=== PATIENT | female | born 1955 | race Two or more races ===

== ENCOUNTER 2018-03-26 15:04 | Inpatient (IN) | payer MEDICAID, OTHER ==
[~2018-03-26] VITALS: Ht 154.9 cm; Wt 65.5 kg
[2018-03-26] MEDS ORDERED: GLUC1KIT SQ (15:34)
[2018-03-26] MEDS ORDERED: POLY15DR57 EACHEYE (15:34)
[2018-03-26] MEDS ORDERED: METF-440 PO (15:34)
[2018-03-26] MEDS ORDERED: HYDR-548 PO (15:34)
[2018-03-26] MEDS ORDERED: PANT40TA4 PO (15:34)
[2018-03-26] MEDS ORDERED: SERT50TA PO (15:34)
[2018-03-26] MEDS ORDERED: MAGN61TA3 PO (15:34)
[2018-03-26] MEDS ORDERED: LISI-607 PO (15:34)
[2018-03-26] MEDS ORDERED: GLIP2.5T PO (15:34)
[2018-03-26] MEDS ORDERED: HYDR-551 PO (15:34)
[2018-03-26] MEDS ORDERED: DIPH25CA83 PO (15:34)
[2018-03-26] MEDS ORDERED: ONDA4TAB5 PO (15:34)
[2018-03-26] MEDS ORDERED: TYLENOL PR (15:34)
[2018-03-26] MEDS ORDERED: ACET-2154 PO (15:34)
[2018-03-26] MEDS ORDERED: IV NORMAL SALINE 1000 ML BAG IV ONE (15:45)
[2018-03-26] MEDS ORDERED: ONDANSETRON 4 MG/2 ML VIAL IV ONE (15:45)
[2018-03-26] MEDS ORDERED: ONDANSETRON 4 MG/2 ML VIAL ONE (15:54)
[2018-03-26 16:05] LABS: BASOPHILS # (AUTO) 0.1 K/uL (0.0-8.0); EOSINOPHILS # (AUTO) 0.2 K/uL (0.0-0.7); EOSINOPHILS % (AUTO) 3.3 % (0.0-7.0); HEMATOCRIT 36.6 % (31.2-41.9); HEMOGLOBIN 12.3 g/dL (10.9-14.3); LYMPHOCYTES # (AUTO) 2.1 K/uL (20.0-40.0); LYMPHOCYTES % (AUTO) 32.4 % (20.5-51.5); MEAN CORPUSCULAR HEMOGLOBIN 29.2 uug (24.7-32.8); MEAN CORPUSCULAR HGB CONC 34 g/dL (32.3-35.6); MEAN CORPUSCULAR VOLUME 86.6 fL (75.5-95.3); MONOCYTES # (AUTO) 0.5 K/uL (2.0-10.0); MONOCYTES % (AUTO) 7.9 % (0.0-11.0); NEUTROPHILS # (AUTO) 3.6 K/uL (1.8-8.9); NEUTROPHILS % (AUTO) 55.4 % (38.5-71.5); PLATELET COUNT (AUTO) 309 K/uL (179-408); RED BLOOD CELL COUNT(AUTO) 4.23 MIL/uL (3.63-4.92); WHITE BLOOD COUNT (AUTO) 6.6 K/uL (3.8-11.8)
[2018-03-26 16:17] LABS: CARBON DIOXIDE 29 mmol/L (21-32); CHLORIDE 103 mmol/L (98-107); CREATININE 0.9 mg/dL (0.6-1.3); GLUCOSE 133 mg/dL (74-106); POTASSIUM 4.4 mmol/L (3.5-5.1); UREA NITROGEN, BLOOD 20 mg/dL (7-18)
[2018-03-26 16:23] LABS: ALANINE AMINOTRANSFERASE 17 U/L (14-59); ALKALINE PHOSPHATASE 90 U/L (50-136); ASPARTATE AMINOTRANSFERASE 9 U/L (15-37); BILIRUBIN,DIRECT < 0.1 mg/dL (0.0-0.2); BILIRUBIN,TOTAL 0.1 mg/dL (0.2-1.0); LIPASE 95 U/L (73-393); TOTAL PROTEIN, SERUM 7.1 g/dL (6.4-8.2)
[2018-03-26 17:20] LABS: *BILIRUBIN,URIN NEGATIVE (NEGATIVE); *COLOR,URINE YELLOW (YELLOW); *KETONES,URINE NEGATIVE (NEGATIVE); *PROTEIN,URINE NEGATIVE (NEGATIVE); *UROBILINOGEN,URINE 0.2 E.U./dl (NORMAL); NITRITE, URINE NEGATIVE (NEGATIVE)
[2018-03-26] MEDS ORDERED: PIPERACILLIN SODIUM/TAZOBACTAM 3.375 G in IV DEXTROSE 5% 50 ML IV ONE (18:45)
[2018-03-26] MEDS ORDERED: PIPERACILLIN/TAZOBACTAM/D5W 50 ML IV ONE (18:54)
[2018-03-26 19:32] LABS: *CLARITY,URINE SLIGHTLY CLOUDY (CLEAR)
[2018-03-26 19:34] LABS: *BLOOD, URINE TRACE (NEGATIVE); LEUKOCYTE ESTERASE ,URINE 1+ (NEGATIVE); UGLUCOSE NEGATIVE (NEGATIVE)
[2018-03-26 19:37] LABS: BACTERIA,URINE MANY /HPF (NONE SEEN); SQUAMOUS EPITHELIAL CELL,UR MODERATE /HPF (NONE SEEN)
--- NOTE | 2018-03-26 19:41 | NUR ---
Pt awake, alert, oriented x3. No sob noted. No s/sx of distress noted. Resp even and unlabored. Pt mostly speaks Thai. Able to move well in bed. R BLE amputation noted. Skin intact. Output 800ml clear, yellow urine noted. Will cont to monitor. Call light within reach.
--- NOTE | 2018-03-26 19:47 | NUR ---
Report given to TOMASA Brito
--- NOTE | 2018-03-26 19:50 | NUR ---
20g LAC IV flushing well. Dressing C/D/I
--- NOTE | 2018-03-26 20:02 | NUR ---
Pt. admitted to same day surgery center, under care of Dr Garcia. Belongs List completed
[2018-03-26 20:10] VITALS: BP 116/56
[2018-03-26] MEDS ORDERED: POLYVINYL ALCOHOL OPHT DROPS 15 ML BOTTLE EACHEYE PRN (20:30)
[2018-03-26] MEDS ORDERED: Z GUARD REMEDY PASTE 57 GM TUBE TOP PRN (20:45)
[2018-03-26] MEDS ORDERED: HYDROCODONE/APAP 10-325 MG TABLET PO PRN (20:45)
[2018-03-26] MEDS ORDERED: MORPHINE SULFATE 4 MG/1 ML DISP.SYRIN IV PRN (20:45)
[2018-03-26] MEDS ORDERED: ONDANSETRON 4 MG/2 ML VIAL IV PRN (20:45)
[2018-03-26] MEDS ORDERED: MAGNESIUM HYDROXIDE 30 ML LIQUID UDC PO PRN (20:45)
[2018-03-26] MEDS ORDERED: ACETAMINOPHEN 325 MG TABLET PO PRN (20:45)
--- NOTE | 2018-03-26 21:00 | NUR ---
RECEIVED PT FROM ER [facility]IA [facility]. UNDER THE CARE OF DR. KARINA DNP. DX: DIVERTICULITIS. PT SHOWS NO SIGNS OF DISTRESS. PT VITAL SIGNS WITHIN NORMAL LIMIT. BELONGING LIST DONE.ADMISSION PROCESS AND CARE PLAN INITIATED. INTERMEDIATE ASSESSMENT DONE. SAFETY AND COMFORT PROVIDED. WILL CONTINUE TO MONITOR.
[2018-03-26] MEDS: IV NS 1000 ML 1,000 ML IV PRN (21:58)
[2018-03-26] MEDS ORDERED: ENOXAPARIN SODIUM 30 MG/0.3 ML DISP.SYRIN SUBCUT ONE (22:00)
[2018-03-26] MEDS ORDERED: METRONIDAZOLE 500 MG/NS 100ML 100 ML IV ONE (23:20)
[2018-03-26] MEDS ORDERED: PIPERACILLIN SODIUM/TAZO 3.375 GM VIAL ONE (23:20)
[2018-03-26] MEDS: METRONIDAZOLE 500 MG/NS 100ML 500 MG in PREMIXED 1 EACH IV SCH (23:44)
[2018-03-27] MEDS: PIPERACILLIN/TAZOBACTAM/D5W 3.375 G in PREMIXED 1 EACH IV SCH ×4 (00:37→21:52)
[2018-03-27] MEDS ORDERED: PIPERACILLIN SODIUM/TAZO 3.375 GM VIAL ONE (01:13)
[2018-03-27] MEDS ORDERED: METRONIDAZOLE 500 MG/NS 100ML 100 ML IV ONE (01:13)
[2018-03-27 04:00] VITALS: BP 102/62
[2018-03-27] MEDS: METRONIDAZOLE 500 MG/NS 100ML 500 MG in PREMIXED 1 EACH IV SCH ×2 (05:15→14:10)
[2018-03-27 06:30] LABS: BASOPHILS % (AUTO) 0.5 % (0.0-2.0); EOSINOPHILS # (AUTO) 0.2 K/uL (0.0-0.7); EOSINOPHILS % (AUTO) 2.4 % (0.0-7.0); HEMATOCRIT 33.5 % (31.2-41.9); HEMOGLOBIN 11.5 g/dL (10.9-14.3); LYMPHOCYTES # (AUTO) 1.4 K/uL (20.0-40.0); LYMPHOCYTES % (AUTO) 20.7 % (20.5-51.5); MEAN CORPUSCULAR HEMOGLOBIN 29.7 uug (24.7-32.8); MEAN CORPUSCULAR HGB CONC 34 g/dL (32.3-35.6); MEAN CORPUSCULAR VOLUME 86.9 fL (75.5-95.3); MONOCYTES # (AUTO) 0.5 K/uL (2.0-10.0); NEUTROPHILS # (AUTO) 4.6 K/uL (1.8-8.9); NEUTROPHILS % (AUTO) 68.4 % (38.5-71.5); PLATELET COUNT (AUTO) 291 K/uL (179-408); RED BLOOD CELL COUNT(AUTO) 3.86 MIL/uL (3.63-4.92); WHITE BLOOD COUNT (AUTO) 6.7 K/uL (3.8-11.8)
[2018-03-27 06:38] LABS: BILIRUBIN,TOTAL 0.2 mg/dL (0.2-1.0); CREATININE 0.9 mg/dL (0.6-1.3); PHOSPHOROUS 4.9 mg/dL (2.5-4.9); POTASSIUM 4.5 mmol/L (3.5-5.1); TOTAL PROTEIN, SERUM 6.4 g/dL (6.4-8.2)
--- NOTE | 2018-03-27 06:56 | NUR ---
PT SLEPT THROUGHOUT THE SHIFT. PT SHOWS NO SIGNS OF DISTRESS.PT VITAL SIGNS WITHIN NORMAL LIMIT. IV INTACT AND PATENT. PRESCRIBED MEDICATION GIVEN AND PT TOLERATED IT WELL. SAFETY AND COMFORT PROVIDED. ALL NEEDS ARE MET. WILL ENDORSE ACCORDINGLY TO DAYSHIFT NURSE FOR CONTINUITY OF CARE.
[2018-03-27 08:25] LABS: THYROID STIMULATING HORMONE 2.548 mIU/mL (0.358-3.740)
[2018-03-27] MEDS ORDERED: Z GUARD REMEDY PASTE 57 GM TUBE TOP PRN (09:15)
[2018-03-27] MEDS: PANTOPRAZOLE SODIUM 40 MG TABLET.DR PO SCH (09:49)
[2018-03-27] MEDS: LISINOPRIL 5 MG TABLET PO SCH (09:50)
[2018-03-27] MEDS: SERTRALINE HCL 50 MG TABLET PO SCH (09:50)
[2018-03-27] MEDS ORDERED: PNEUMOCOCCAL 23-VAL P-SAC VAC 0.5 ML VIAL IM ONE (10:00)
[2018-03-27] MEDS ORDERED: INFLUENZA VACCINE 2018-2019 0.5 ML DISP.SYRIN IM ONE (10:00)
[2018-03-27] MEDS: glipiZIDE XL 2.5 MG TABCR PO SCH ×2 (10:32→16:29)
[2018-03-27 11:30] VITALS: BP 133/65
[2018-03-27 15:35] VITALS: BP 135/88
[2018-03-27] MEDS: IV NS 1000 ML 1,000 ML IV PRN (17:40)
[2018-03-27 19:15] VITALS: BP 115/59
--- NOTE | 2018-03-27 20:00 | NUR ---
RECEIVED PATIENT AWAKE IN BED. PATIENT IS A/O X4. CROATIAN SPEAKING BUT ABLE TO MAKE NEEDS KNOWN. DENIES PAIN OR DISCOMFORT. NO RESP. DISTRESS NOTED. VS WNL. IVF INFUSING WELL TO LEFT AC #20 GAUGE. CALL LIGHT IN REACH. ALL NEEDS ATTENDED. WILL CONTINUE TO MONITOR.
[2018-03-27] MEDS: ENOXAPARIN SODIUM 30 MG/0.3 ML DISP.SYRIN SQ SCH (20:30)
[2018-03-28 03:32] VITALS: BP 142/61
[2018-03-28] MEDS: PIPERACILLIN/TAZOBACTAM/D5W 3.375 G in PREMIXED 1 EACH IV SCH ×3 (05:02→22:00)
[2018-03-28 06:18] LABS: BASOPHILS % (AUTO) 0.4 % (0.0-2.0); EOSINOPHILS # (AUTO) 0.1 K/uL (0.0-0.7); EOSINOPHILS % (AUTO) 1.2 % (0.0-7.0); HEMATOCRIT 33.2 % (31.2-41.9); HEMOGLOBIN 11.4 g/dL (10.9-14.3); LYMPHOCYTES # (AUTO) 1.5 K/uL (20.0-40.0); LYMPHOCYTES % (AUTO) 22.5 % (20.5-51.5); MEAN CORPUSCULAR HEMOGLOBIN 29.6 uug (24.7-32.8); MEAN CORPUSCULAR HGB CONC 34 g/dL (32.3-35.6); MEAN CORPUSCULAR VOLUME 86.5 fL (75.5-95.3); MONOCYTES # (AUTO) 0.4 K/uL (2.0-10.0); MONOCYTES % (AUTO) 6.2 % (0.0-11.0); NEUTROPHILS # (AUTO) 4.7 K/uL (1.8-8.9); NEUTROPHILS % (AUTO) 69.7 % (38.5-71.5); PLATELET COUNT (AUTO) 288 K/uL (179-408); RED BLOOD CELL COUNT(AUTO) 3.85 MIL/uL (3.63-4.92); WHITE BLOOD COUNT (AUTO) 6.8 K/uL (3.8-11.8)
[2018-03-28 06:27] LABS: ALANINE AMINOTRANSFERASE 14 U/L (14-59); ALKALINE PHOSPHATASE 71 U/L (50-136); ASPARTATE AMINOTRANSFERASE < 5 U/L (15-37); BILIRUBIN,TOTAL 0.2 mg/dL (0.2-1.0); CARBON DIOXIDE 28 mmol/L (21-32); CHLORIDE 106 mmol/L (98-107); CREATININE 0.8 mg/dL (0.6-1.3); GLUCOSE 83 mg/dL (74-106); LIPASE 73 U/L (73-393); MAGNESIUM 1.8 mg/dL (1.8-2.4); PHOSPHOROUS 3.3 mg/dL (2.5-4.9); POTASSIUM 4.1 mmol/L (3.5-5.1); TOTAL PROTEIN, SERUM 6.5 g/dL (6.4-8.2); UREA NITROGEN, BLOOD 10 mg/dL (7-18)
--- NOTE | 2018-03-28 06:34 | NUR ---
PATIENT ASLEEP IN BED. SLEPT WELL THROUGHOUT THE NIGHT. DENIES PAIN. DENIES NAUSEA. VSS. IVF INFUSING WELL. CALL LIGHT IN REACH. ALL NEEDS ATTENDED. WILL CONTINUE TO MONITOR.
--- NOTE | 2018-03-28 07:30 | NUR ---
ON BED,RESTING. NO DISTRESS NOTED.
[2018-03-28] MEDS: glipiZIDE XL 2.5 MG TABCR PO SCH ×2 (08:17→16:49)
[2018-03-28] MEDS: SERTRALINE HCL 50 MG TABLET PO SCH (08:17)
[2018-03-28] MEDS: PANTOPRAZOLE SODIUM 40 MG TABLET.DR PO SCH (08:17)
[2018-03-28] MEDS: LISINOPRIL 5 MG TABLET PO SCH (08:21)
--- NOTE | 2018-03-28 08:28 | NUR ---
APPETITE GOOD, TAKING FLUIDS WELL. DENIES ANY DISCOMFORT. TAKING TO FAMILY FROM OUT OF STATE, GLAD OF PHONE CALL. DISCUSSED TO CALL NURSE FOR ASSISTANCE FOR SAFETY, FALL RISK, VERBALIZED UNDERSTANDING.
[2018-03-28] MEDS: IV NS 1000 ML 1,000 ML IV PRN (09:30)
--- NOTE | 2018-03-28 10:45 | NUR ---
rediscussed bowel regimen, had bm yesterday per patient, moves bowel every other day routine.
[2018-03-28 11:18] VITALS: BP 152/77
--- NOTE | 2018-03-28 12:30 | NUR ---
appetite good, talking to daughter, glad of call.
--- NOTE | 2018-03-28 14:30 | NUR ---
antibiotic given as ordered, reinforced teaching of antibiotic use,verbalized understanding
[2018-03-28 15:55] VITALS: BP 109/54
--- NOTE | 2018-03-28 16:27 | NUR ---
napping comfortably. no distress noted
--- NOTE | 2018-03-28 18:32 | NUR ---
awake, ate dinner fair. had x 1 bm today. no discomfort verbalized for the shift. appreciative of care.
[2018-03-28 20:06] VITALS: BP 135/52
[2018-03-28] MEDS ORDERED: HYDROCORTISONE 2.5% CREAM 20 GM TUBE TOP PRN (20:15)
[2018-03-28] MEDS: ENOXAPARIN SODIUM 30 MG/0.3 ML DISP.SYRIN SQ SCH (20:15)
[2018-03-28] MEDS ORDERED: BACLOFEN 10 MG TABLET ONE (21:28)
[2018-03-29] MEDS: IV NS 1000 ML 1,000 ML IV PRN (02:30)
[2018-03-29 04:30] VITALS: BP 163/74
[2018-03-29] MEDS: PIPERACILLIN/TAZOBACTAM/D5W 3.375 G in PREMIXED 1 EACH IV SCH ×2 (05:38→13:45)
[2018-03-29 05:54] LABS: BASOPHILS % (AUTO) 0.7 % (0.0-2.0); EOSINOPHILS # (AUTO) 0.2 K/uL (0.0-0.7); HEMATOCRIT 33.1 % (31.2-41.9); HEMOGLOBIN 11.3 g/dL (10.9-14.3); LYMPHOCYTES # (AUTO) 1.5 K/uL (20.0-40.0); LYMPHOCYTES % (AUTO) 21.9 % (20.5-51.5); MEAN CORPUSCULAR HEMOGLOBIN 28.9 uug (24.7-32.8); MEAN CORPUSCULAR HGB CONC 34 g/dL (32.3-35.6); MEAN CORPUSCULAR VOLUME 84.8 fL (75.5-95.3); MONOCYTES # (AUTO) 0.4 K/uL (2.0-10.0); MONOCYTES % (AUTO) 6.5 % (0.0-11.0); NEUTROPHILS # (AUTO) 4.6 K/uL (1.8-8.9); NEUTROPHILS % (AUTO) 67.9 % (38.5-71.5); PLATELET COUNT (AUTO) 270 K/uL (179-408); RED BLOOD CELL COUNT(AUTO) 3.91 MIL/uL (3.63-4.92); WHITE BLOOD COUNT (AUTO) 6.7 K/uL (3.8-11.8)
[2018-03-29 06:06] LABS: CREATININE 0.7 mg/dL (0.6-1.3); MAGNESIUM 1.9 mg/dL (1.8-2.4); PHOSPHOROUS 2.7 mg/dL (2.5-4.9); POTASSIUM 4.2 mmol/L (3.5-5.1)
--- NOTE | 2018-03-29 06:53 | NUR ---
PATIENT LYING ON BED, NO C/O OF PAIN OR ANY DISCOMFORT, NO N/V . IV FLUID INFUSING ORDERED. BMX 2 DURING THE SHIFT. NO DIARRHEA . WILL CONTINUE TO MONITOR
[2018-03-29] MEDS: glipiZIDE XL 2.5 MG TABCR PO SCH (07:42)
[2018-03-29] MEDS: SERTRALINE HCL 50 MG TABLET PO SCH (08:02)
[2018-03-29] MEDS: PANTOPRAZOLE SODIUM 40 MG TABLET.DR PO SCH (08:02)
[2018-03-29] MEDS: LISINOPRIL 5 MG TABLET PO SCH (08:02)
[2018-03-29] MEDS ORDERED: HYDROCORTISONE 2.5% CREAM 20 GM TUBE TOP PRN (08:15)
[2018-03-29] MEDS ORDERED: LEVO500T2 PO (11:14)
[2018-03-29] MEDS ORDERED: METR500T PO (11:14)
[2018-03-29 11:22] VITALS: BP 129/59
--- NOTE | 2018-03-29 15:26 | NUR ---
D/C ORDERS RECEIVED NOTED AND CARRIED OUT,D/C INSTRUCTION AND RN REPORT GIVEN TO THE ALF ,D/C FATOULOCK PER MD ORDERS,PT LEFT THE FACILITY VIA AMBULANCES IN STABLE CONDITION
== END 2018-03-29 15:30 | DRG 244 ==
LOC: ER 15:08 → MED 20:00
PROVIDERS: ADMIT Nurse Practitioner Acute Care; ATTEND Nurse Practitioner Acute Care
DX: K57.20 Diverticulitis of large intestine with perforation and abscess without bleeding (principal); E46 Unspecified protein-calorie malnutrition; N30.90 Cystitis, unspecified without hematuria; Z89.611 Acquired absence of right leg above knee; E88.09 Other disorders of plasma-protein metabolism, not elsewhere classified; D64.9 Anemia, unspecified; E11.9 Type 2 diabetes mellitus without complications; E78.5 Hyperlipidemia, unspecified; F32.9 Major depressive disorder, single episode, unspecified; I10 Essential (primary) hypertension; K21.9 Gastro-esophageal reflux disease without esophagitis; F41.9 Anxiety disorder, unspecified; Z68.27 Body mass index [BMI] 27.0-27.9, adult; Z79.84 Long term (current) use of oral hypoglycemic drugs
CPT/HCPCS: 36415; 83690; 83735; 84100; 84443; 85025; 85651; 85730; 90686; 90732; 93005; A4663; C1758; J1650; J2270; J2405; J2543; J3490; J7030

== ENCOUNTER 2020-03-24 23:38 | Inpatient (IN) | payer OTHER ==
[~2020-03-24] VITALS: Ht 162.6 cm; Wt 50.3 kg
[~2020-03-24 23:38] MED LIST: ACET-2154 PO; DIPH25CA83 PO; GLIP2.5T PO; GLUC1KIT SQ; HYDR-4354 PO; HYDR-4385 PO; LEVO500T2 PO; LISI-607 PO; MAGN61TA3 PO; METF-440 PO; METR500T PO; ONDA4TAB5 PO; PANT40TA49 PO; POLY15DR31 EACHEYE; SERT50TA PO; SIME80TA30 PO; SODI1TAB3 PO; TYLENOL PR
--- NOTE | 2020-03-24 23:50 | NUR ---
Dr. Gutierrez at bedside for MSE.
[2020-03-25] MEDS ORDERED: IV NORMAL SALINE 1000 ML BAG IV ONE
[2020-03-25] MEDS ORDERED: ONDANSETRON 4 MG/2 ML VIAL IV ONE
[2020-03-25] MEDS ORDERED: IV NORMAL SALINE 500 ML IV ONE
[2020-03-25] MEDS ORDERED: ONDANSETRON 4 MG/2 ML VIAL ONE (00:12)
[2020-03-25 00:28] LABS: BASOPHILS # (AUTO) 0.1 K/uL (0.0-8.0); BASOPHILS % (AUTO) 1.4 % (0.0-2.0); EOSINOPHILS % (AUTO) 0.3 % (0.0-7.0); HEMATOCRIT 32.2 % (31.2-41.9); HEMOGLOBIN 10.8 g/dL (10.9-14.3); LYMPHOCYTES # (AUTO) 1.6 K/uL (20.0-40.0); LYMPHOCYTES % (AUTO) 15.4 % (20.5-51.5); MEAN CORPUSCULAR HGB CONC 34 g/dL (32.3-35.6); MEAN CORPUSCULAR VOLUME 77.5 fL (75.5-95.3); MONOCYTES # (AUTO) 0.4 K/uL (2.0-10.0); MONOCYTES % (AUTO) 4.2 % (0.0-11.0); NEUTROPHILS # (AUTO) 7.9 K/uL (1.8-8.9); NEUTROPHILS % (AUTO) 78.7 % (38.5-71.5); PLATELET COUNT (AUTO) 505 K/uL (179-408); RED BLOOD CELL COUNT(AUTO) 4.16 MIL/uL (3.63-4.92); WHITE BLOOD COUNT (AUTO) 10.1 K/uL (3.8-11.8)
--- NOTE | 2020-03-25 00:32 | NUR ---
Ultrasound at bedside.
[2020-03-25 00:40] LABS: CREATININE 0.7 mg/dL (0.6-1.3)
[2020-03-25 01:04] LABS: BILIRUBIN,DIRECT 0.1 mg/dL (0.0-0.2); BILIRUBIN,TOTAL 0.3 mg/dL (0.2-1.0)
[2020-03-25] MEDS ORDERED: SWABABLE VALVE TRANSFER SET EA MC ONE (01:10)
[2020-03-25] MEDS ORDERED: IOHEXOL 300MG/ML 100 ML INFUS..BTL ONE (01:10)
[2020-03-25] MEDS ORDERED: IV NORMAL SALINE 250 ML IV ONE (01:10)
--- NOTE | 2020-03-25 01:14 | NUR ---
Chito hensley in EDM - 03/25/20 at 0124 by AMAYA Pt out of ER for CT.
--- NOTE | 2020-03-25 01:20 | NUR ---
Assisted patient transfer to [facility], no falls noted.
--- NOTE | 2020-03-25 01:24 | NUR ---
Pt provided urine sample, sent to lab.
--- NOTE | 2020-03-25 01:29 | NUR ---
Pt out of ER for CT.
[2020-03-25 01:32] LABS: *BILIRUBIN,URIN NEGATIVE (NEGATIVE); *CLARITY,URINE CLEAR (CLEAR); *COLOR,URINE YELLOW (YELLOW); *KETONES,URINE 1+ (NEGATIVE); LEUKOCYTE ESTERASE ,URINE 3+ (NEGATIVE); NITRITE, URINE POSITIVE (NEGATIVE); PH,URINE 6.5 (5.0-8.0); UGLUCOSE NEGATIVE (NEGATIVE)
[2020-03-25 01:33] LABS: *BLOOD, URINE TRACE INTACT (NEGATIVE)
--- NOTE | 2020-03-25 01:50 | NUR ---
Pt back to ER from CT.
[2020-03-25] MEDS ORDERED: CEFTRIAXONE 1 G in IV DEXTROSE 5% 50 ML IV ONE (02:00)
[2020-03-25] MEDS ORDERED: CEFTRIAXONE /D5W 50ML IVPB **ER PYXIS IV ONE (02:01)
--- NOTE | 2020-03-25 02:21 | NUR ---
Spoke with Lashanda engle [facility], given authorization# [id number], requested to have clinicals faxed to
--- NOTE | 2020-03-25 02:25 | NUR ---
Called [facility] to page Dr. Cha.
--- NOTE | 2020-03-25 02:29 | NUR ---
Dr. Gutierrez on panel call with Dr. Cha. Patient accepted for admission to [facility], diagnosis: intractable abdominal pain and liver mass.
[2020-03-25] MEDS ORDERED: ONDANSETRON 4 MG/2 ML VIAL IV PRN (03:00)
[2020-03-25] MEDS ORDERED: DEXTROSE 50% 50 ML DISP.SYRIN IV PRN (03:00)
[2020-03-25] MEDS ORDERED: ACETAMINOPHEN 325 MG TABLET PO PRN (03:00)
[2020-03-25] MEDS ORDERED: MAGNESIUM HYDROXIDE 30 ML LIQUID UDC PO PRN (03:00)
[2020-03-25] MEDS ORDERED: Z GUARD REMEDY PASTE 57 GM TUBE TOP PRN (03:00)
[2020-03-25] MEDS ORDERED: INSULIN REGULAR, HUMAN 300 UNITS/3 ML VIAL SQ PRN (03:00)
[2020-03-25 03:03] LABS: BACTERIA,URINE MANY /HPF (NONE SEEN); WBC,URINE 20-50 /HPF (0-3)
[2020-03-25 03:04] LABS: SQUAMOUS EPITHELIAL CELL,UR FEW /HPF (NONE SEEN)
--- NOTE | 2020-03-25 04:20 | NUR ---
Received report from TOMASA Mcnally for continuity of care.
--- NOTE | 2020-03-25 04:25 | NUR ---
Report given to Corey WASHINGTON.
--- NOTE | 2020-03-25 04:30 | NUR ---
Patient arrived from Emergency Department. Patient is a 64yo Female admitted for Intractable abdominal pain & UTI. Patient is A&O x4 and able to verbalize all needs. Skin is intact. No SOB or Respiratory distress noted. 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 No complaints of pain at this time. Patient is continent , and able to transfer to commode with minimum assistance. Patient is primarily Maori speaking, but is able to communicate in Gabonese. Patients bed is locked and in lowest position, with 2/4 side rails up for safety. Bed alarm is active, and call pugh is within reach. Patient resting comfortably in bed. Will continue to monitor.
[2020-03-25] MEDS: BLOOD SUGAR DIAGNOSTIC 1 EACH STRIP VI SCH ×4 (07:30→20:37)
--- NOTE | 2020-03-25 07:30 | NUR ---
Received patient resting in bed awake and oriented. Patient denies any pain and is mainly Swedish speaking. She has IV on left hand running 20 gauge NS at 75mls/hour. patient is anxious about diagnosis and wants to talk to her doctor. Safety precautions are in place with call lights and belongings within reach. Will continue to monitor.
[2020-03-25] MEDS: PANTOPRAZOLE SODIUM 40 MG TABLET.DR PO SCH (09:31)
[2020-03-25] MEDS: SODIUM CHLORIDE 1,000 MG TABLET PO SCH (09:31)
[2020-03-25] MEDS: LISINOPRIL 5 MG TABLET PO SCH (09:39)
[2020-03-25] MEDS: IV NS 1000 ML 1,000 ML IV PRN (10:57)
[2020-03-25 11:29] LABS: BASOPHILS # (AUTO) 0.1 K/uL (0.0-8.0); BASOPHILS % (AUTO) 0.8 % (0.0-2.0); EOSINOPHILS % (AUTO) 0.4 % (0.0-7.0); HEMATOCRIT 30.5 % (31.2-41.9); HEMOGLOBIN 10.2 g/dL (10.9-14.3); LYMPHOCYTES # (AUTO) 1.7 K/uL (20.0-40.0); LYMPHOCYTES % (AUTO) 19.2 % (20.5-51.5); MEAN CORPUSCULAR HEMOGLOBIN 25.9 uug (24.7-32.8); MEAN CORPUSCULAR HGB CONC 34 g/dL (32.3-35.6); MEAN CORPUSCULAR VOLUME 77.3 fL (75.5-95.3); MONOCYTES # (AUTO) 0.6 K/uL (2.0-10.0); MONOCYTES % (AUTO) 6.4 % (0.0-11.0); NEUTROPHILS # (AUTO) 6.6 K/uL (1.8-8.9); NEUTROPHILS % (AUTO) 73.2 % (38.5-71.5); PLATELET COUNT (AUTO) 460 K/uL (179-408); RED BLOOD CELL COUNT(AUTO) 3.95 MIL/uL (3.63-4.92); WHITE BLOOD COUNT (AUTO) 9.1 K/uL (3.8-11.8)
[2020-03-25 11:40] VITALS: BP 151/73
--- NOTE | 2020-03-25 11:52 | NUR ---
Patient IV infiltrated and had to be removed, and replaced. IV is now on left wrist 20 gauge. Will continue to monitor.
[2020-03-25 11:56] LABS: THYROID STIMULATING HORMONE 3.488 mIU/mL (0.358-3.740)
[2020-03-25 11:59] LABS: CREATININE 0.7 mg/dL (0.6-1.3); POTASSIUM 4.4 mmol/L (3.5-5.1)
[2020-03-25 12:11] LABS: BILIRUBIN,TOTAL 0.2 mg/dL (0.2-1.0); MAGNESIUM 1.8 mg/dL (1.8-2.4); PHOSPHOROUS 4.7 mg/dL (2.5-4.9); TOTAL PROTEIN, SERUM 6.9 g/dL (6.4-8.2)
[2020-03-25 16:00] VITALS: BP 146/72
--- NOTE | 2020-03-25 19:00 | NUR ---
Pt resting comfortably in bed, watching TV. Pt is A&OX4 and able to verbalize all needs Denies acute distress or pain. No s/s of discomfort noted. V/S stable on room air. LHand 20 intact with NS running at 75cc. Pt noted with BKA on R. Leg. Bedside commode in place. Safety measures in place. Bed low and locked in position. Call light within reach. Will continue with the plan of care
[2020-03-25] MEDS: CEFTRIAXONE 1 G in IV DEXTROSE 5% 50 ML IV SCH (20:25)
[2020-03-25 20:51] VITALS: BP 130/67
[2020-03-26] MEDS: IV NS 1000 ML 1,000 ML IV PRN ×2 (01:08→17:16)
[2020-03-26 05:50] VITALS: BP 147/71
[2020-03-26 06:31] LABS: BASOPHILS # (AUTO) 0.1 K/uL (0.0-8.0); BASOPHILS % (AUTO) 0.6 % (0.0-2.0); EOSINOPHILS # (AUTO) 0.1 K/uL (0.0-0.7); EOSINOPHILS % (AUTO) 1.2 % (0.0-7.0); HEMATOCRIT 30.6 % (31.2-41.9); LYMPHOCYTES # (AUTO) 2.1 K/uL (20.0-40.0); LYMPHOCYTES % (AUTO) 24.9 % (20.5-51.5); MEAN CORPUSCULAR HEMOGLOBIN 25.6 uug (24.7-32.8); MEAN CORPUSCULAR HGB CONC 33 g/dL (32.3-35.6); MEAN CORPUSCULAR VOLUME 78.3 fL (75.5-95.3); MONOCYTES # (AUTO) 0.5 K/uL (2.0-10.0); MONOCYTES % (AUTO) 6.4 % (0.0-11.0); NEUTROPHILS # (AUTO) 5.6 K/uL (1.8-8.9); NEUTROPHILS % (AUTO) 66.9 % (38.5-71.5); PLATELET COUNT (AUTO) 479 K/uL (179-408); WHITE BLOOD COUNT (AUTO) 8.3 K/uL (3.8-11.8)
[2020-03-26] MEDS: BLOOD SUGAR DIAGNOSTIC 1 EACH STRIP VI SCH ×4 (06:33→21:17)
[2020-03-26 06:39] LABS: CREATININE 0.6 mg/dL (0.6-1.3); PHOSPHOROUS 3.7 mg/dL (2.5-4.9); POTASSIUM 4.2 mmol/L (3.5-5.1)
--- NOTE | 2020-03-26 06:50 | NUR ---
Pt slept through the night. Denies acute distress or pain. Denies abdominal pain, nausea and vomiting. V/S stable on room air. Comfort care and needs attended. Fall precaution maintained. Safety measures in place. Call light within reach. Will endorse to oncoming nurse.
--- NOTE | 2020-03-26 08:00 | NUR ---
received in bed awake laert and oriented, speaks Kenyan with little Vietnamese, denies of abdominal pain , no nausea, states feels fine, right BKA, moves in bed independently, IV site occluded- new iv site started on left forearm with G22, explained plan of care- verbalized understanding, safety measures maintained, call light within reach, needs attended
[2020-03-26] MEDS: PANTOPRAZOLE SODIUM 40 MG TABLET.DR PO SCH (08:15)
[2020-03-26] MEDS: SODIUM CHLORIDE 1,000 MG TABLET PO SCH (08:15)
[2020-03-26] MEDS: LISINOPRIL 5 MG TABLET PO SCH (08:16)
[2020-03-26] MEDS: INSULIN REGULAR, HUMAN 300 UNIT/3 ML VIAL SQ PRN (11:35)
[2020-03-26 11:59] VITALS: BP 122/64
--- NOTE | 2020-03-26 12:00 | NUR ---
resting in bed, denies of any nausea, no abdominal pain, appetite good, watching TV on and off, Dr Lr called and updated with pt's condition- states will talk to Dr Chawla
[2020-03-26 15:51] VITALS: BP 152/77
--- NOTE | 2020-03-26 18:00 | NUR ---
no distress noted, all needs attended and met, safety measures maintained, no s/s of hypoglycemic noted, call light within reach
[2020-03-26 20:00] VITALS: BP 139/67
--- NOTE | 2020-03-26 20:05 | NUR ---
Patient in bed alert and able to make needs known.Denies abd'l pain or discomfort.No s/s of distress noted.Assisted to bedside commode.Noted with right BKA.IV site on left forearm patent and intact With NS 0.9 % running well at 75cc/hr.Administered IV AtB Rocephin.No A/R noted.Tolerated well.Call light and belonging with in reach.Continue safety measures.Will continue to monitor.
[2020-03-26] MEDS: CEFTRIAXONE 1 G in IV DEXTROSE 5% 50 ML IV SCH (21:07)
[2020-03-27 04:00] VITALS: BP 152/86
[2020-03-27] MEDS: IV NS 1000 ML 1,000 ML IV PRN ×2 (05:01→18:31)
[2020-03-27] MEDS: BLOOD SUGAR DIAGNOSTIC 1 EACH STRIP VI SCH ×4 (06:11→21:02)
[2020-03-27 06:31] LABS: BASOPHILS # (AUTO) 0.1 K/uL (0.0-8.0); BASOPHILS % (AUTO) 0.7 % (0.0-2.0); EOSINOPHILS # (AUTO) 0.1 K/uL (0.0-0.7); EOSINOPHILS % (AUTO) 1.4 % (0.0-7.0); HEMATOCRIT 29.1 % (31.2-41.9); HEMOGLOBIN 9.6 g/dL (10.9-14.3); LYMPHOCYTES # (AUTO) 1.9 K/uL (20.0-40.0); LYMPHOCYTES % (AUTO) 21.2 % (20.5-51.5); MEAN CORPUSCULAR HEMOGLOBIN 25.8 uug (24.7-32.8); MEAN CORPUSCULAR HGB CONC 33 g/dL (32.3-35.6); MONOCYTES # (AUTO) 0.5 K/uL (2.0-10.0); MONOCYTES % (AUTO) 5.8 % (0.0-11.0); NEUTROPHILS # (AUTO) 6.3 K/uL (1.8-8.9); NEUTROPHILS % (AUTO) 70.9 % (38.5-71.5); PLATELET COUNT (AUTO) 420 K/uL (179-408); RED BLOOD CELL COUNT(AUTO) 3.74 MIL/uL (3.63-4.92); WHITE BLOOD COUNT (AUTO) 8.8 K/uL (3.8-11.8)
--- NOTE | 2020-03-27 06:38 | NUR ---
Patient slept well.No complains through out the night.No respiratory distress .All needs anticipated and met accordingly.
[2020-03-27 06:54] LABS: IRON, SERUM 29 ug/dL (50-175)
[2020-03-27 07:07] LABS: ALANINE AMINOTRANSFERASE 20 U/L (14-59); ALKALINE PHOSPHATASE 199 U/L (50-136); ASPARTATE AMINOTRANSFERASE 37 U/L (15-37); CARBON DIOXIDE 26 mmol/L (21-32); CHLORIDE 102 mmol/L (98-107); CREATININE 0.8 mg/dL (0.6-1.3); FERRITIN 68 ng/mL (8-252); GLUCOSE 129 mg/dL (74-106); MAGNESIUM 1.8 mg/dL (1.8-2.4); PHOSPHOROUS 3.1 mg/dL (2.5-4.9); POTASSIUM 4.2 mmol/L (3.5-5.1); TOTAL PROTEIN, SERUM 6.6 g/dL (6.4-8.2); UREA NITROGEN, BLOOD 10 mg/dL (7-18)
[2020-03-27 07:24] LABS: BILIRUBIN,TOTAL < 0.1 mg/dL (0.2-1.0)
--- NOTE | 2020-03-27 08:00 | NUR ---
in bed resting, readied for breakfast, refused reg insulin coverage for BS 138, explained the importance but states doesn't need it, denies of abdominal pain, no nausea, needs attended and met., safety measures maintained, call light within reach
[2020-03-27] MEDS: INSULIN REGULAR, HUMAN 300 UNIT/3 ML VIAL SQ PRN ×2 (08:18→11:44)
[2020-03-27] MEDS: SODIUM CHLORIDE 1,000 MG TABLET PO SCH (08:24)
[2020-03-27] MEDS: PANTOPRAZOLE SODIUM 40 MG TABLET.DR PO SCH (08:24)
[2020-03-27] MEDS: LISINOPRIL 5 MG TABLET PO SCH (08:25)
[2020-03-27 11:39] VITALS: BP 147/70
[2020-03-27 16:00] VITALS: BP 165/86
--- NOTE | 2020-03-27 16:30 | NUR ---
MD informed of BP 165/86, pt asymptomatic, on the phone with family member
--- NOTE | 2020-03-27 18:06 | NUR ---
resting in bed, no distress noted, all needs attended and met, safety measures maintained, call light within each
[2020-03-27] MEDS: HYDROCODONE/APAP 5-325MG TABLET PO PRN (18:26)
--- NOTE | 2020-03-27 18:35 | NUR ---
up in commode, voided and states feels like needs to have bowel movement but unable- MOM given as ordered prn , also asking for pain med- [place] itab po given as ordered prn, assisted back to bed with call light at bedside
[2020-03-27 20:00] VITALS: BP 134/69
--- NOTE | 2020-03-27 20:08 | NUR ---
Patient awake alert and responsive. Assisted to commode.Voided x2.Denies pain or discomfort.No s/s of distress noted.Compliant with medications.Call light with in reach .Will continue to monitor.
[2020-03-27] MEDS: CEFTRIAXONE 1 G in IV DEXTROSE 5% 50 ML IV SCH (20:58)
[2020-03-28 04:00] VITALS: BP 152/85
[2020-03-28] MEDS: IV NS 1000 ML 1,000 ML IV PRN ×2 (06:29→21:44)
--- NOTE | 2020-03-28 06:30 | NUR ---
Patient asleep in bed, resting. No s/s of acute distress. No complaints throughout the night So SOB or cp. Bed is locked and in lowest position per protocol.
[2020-03-28] MEDS ORDERED: GOLYTELY 4000 ML BOTTLE PO ONE (07:00)
--- NOTE | 2020-03-28 07:15 | NUR ---
Received patient awake and alert in bed. Patient denies pain and discomfort. No S/S of acute distress. Bed in lowest position, side rail up x2, call light within reach. Will continue to monitor.
[2020-03-28] MEDS: PANTOPRAZOLE SODIUM 40 MG TABLET.DR PO SCH (08:33)
[2020-03-28] MEDS: LISINOPRIL 5 MG TABLET PO SCH (08:33)
[2020-03-28] MEDS: SODIUM CHLORIDE 1,000 MG TABLET PO SCH (08:33)
--- NOTE | 2020-03-28 10:59 | NUR ---
Contacted Dr. Fuentes office awaiting for a call back for consent orders.
[2020-03-28] MEDS: HYDROCODONE/APAP 5-325MG TABLET PO PRN ×2 (11:36→19:46)
[2020-03-28 12:09] VITALS: BP 148/62
[2020-03-28 12:31] LABS: *IMMUNOGLOBULIN G, SERUM 1134 mg/dL (586-1602); AFP, TUMOR MARKER 2.2 ng/mL (0.0-8.3); IMMUNOGLOBULIN A, SERUM 435 mg/dL (87-352); IMMUNOGLOBULIN M, SERUM 90 mg/dL (26-217)
[2020-03-28 15:07] LABS: A/G RATIO 0.7 (0.7-1.7); ALBUMIN 2.5 g/dL (2.9-4.4); ALPHA-1-GLOBULIN 0.4 g/dL (0.0-0.4); ALPHA-2-GLOBULIN 0.9 g/dL (0.4-1.0); BETA GLOBULIN 1.2 g/dL (0.7-1.3); GLOBULIN, TOTAL 3.5 g/dL (2.2-3.9); M-SPIKE Not Observed g/dL (Not Observed)
[2020-03-28] MEDS: MORPHINE SULFATE 2 MG/1 ML DISP.SYRIN IV PRN (15:47)
[2020-03-28 17:00] VITALS: BP 168/82
[2020-03-28] MEDS: CLONIDINE HCL 0.1 MG TABLET PO PRN (17:15)
--- NOTE | 2020-03-28 18:22 | NUR ---
Patient alert and oriented. Patient reporting abdominal pain, pain medication administered. Patient scheduled for colonoscopy, patient started on clear liquids, and NPO at midnight. Safety measures provided. Will endorse to oncoming nurse.
--- NOTE | 2020-03-28 19:20 | NUR ---
Pt in bed, awake. Patient is A&Ox4. Denies any acute distress/SOB but complains of abdominal pain. Will assess and check if PRN pain medication is available. Pt
--- NOTE | 2020-03-28 19:20 | NUR ---
Pt on clear liquids and will be NPO after midnight for scheduled colonoscopy tomorrow. IV on the LFA is intact with NS running at 75cc. Safety measures in place. Bed low and locked in position. Bedside commode in place. Call light within reach. Will continue with the plan of care.
[2020-03-28 20:11] VITALS: BP 166/82
[2020-03-28] MEDS: CEphaleXIN 500 MG CAPSULE PO SCH (20:20)
[2020-03-29 04:50] VITALS: BP 156/80
[2020-03-29] MEDS: CLONIDINE HCL 0.1 MG TABLET PO PRN (05:13)
[2020-03-29] MEDS: HYDROCODONE/APAP 5-325MG TABLET PO PRN (06:06)
[2020-03-29 06:31] LABS: BASOPHILS # (AUTO) 0.1 K/uL (0.0-8.0); BASOPHILS % (AUTO) 0.7 % (0.0-2.0); EOSINOPHILS # (AUTO) 0.1 K/uL (0.0-0.7); EOSINOPHILS % (AUTO) 0.9 % (0.0-7.0); HEMATOCRIT 31.2 % (31.2-41.9); HEMOGLOBIN 10.3 g/dL (10.9-14.3); LYMPHOCYTES # (AUTO) 1.6 K/uL (20.0-40.0); LYMPHOCYTES % (AUTO) 17.6 % (20.5-51.5); MEAN CORPUSCULAR HEMOGLOBIN 25.9 uug (24.7-32.8); MEAN CORPUSCULAR HGB CONC 33 g/dL (32.3-35.6); MEAN CORPUSCULAR VOLUME 78.5 fL (75.5-95.3); MONOCYTES # (AUTO) 0.7 K/uL (2.0-10.0); NEUTROPHILS # (AUTO) 6.9 K/uL (1.8-8.9); NEUTROPHILS % (AUTO) 73.8 % (38.5-71.5); PLATELET COUNT (AUTO) 434 K/uL (179-408); RED BLOOD CELL COUNT(AUTO) 3.97 MIL/uL (3.63-4.92); WHITE BLOOD COUNT (AUTO) 9.4 K/uL (3.8-11.8)
--- NOTE | 2020-03-29 06:46 | NUR ---
Pt slept intermittently through the night. Denies any acute distress or pain at this time. Blood pressure was 163/89, Clonidine 0.1mg was given. Closed blood pressure monitoring maintained. Comfort care and needs attended. Pain managed effectively. Pt NPO for scheduled colonoscopy. Pt has no BM yet. Fall precaution maintained. Safety measures in place. Bed low and locked in position. Call light within reach. Will endorse to oncoming nurse accordingly.
[2020-03-29 06:52] LABS: BILIRUBIN,TOTAL 0.2 mg/dL (0.2-1.0); CREATININE 0.5 mg/dL (0.6-1.3); POTASSIUM 4.7 mmol/L (3.5-5.1); TOTAL PROTEIN, SERUM 6.9 g/dL (6.4-8.2)
--- NOTE | 2020-03-29 07:30 | NUR ---
Received patient resting in bed awake and oriented. Patient reports pain in the abdomen but refuses any pain medication and is mainly Azerbaijani speaking. She has IV on left hand running 20 gauge NS at 75mls/hour. patient is NPO awaiting a colonoscopy. She was started on Golytely but has had not bowel movement since. Consent and checklist was re[ported to be completed by the off going nurse Safety precautions are in place with call lights and belongings within reach. Will continue to monitor.
[2020-03-29 08:29] VITALS: BP 142/83
[2020-03-29] MEDS: PANTOPRAZOLE SODIUM 40 MG TABLET.DR PO SCH (08:29)
[2020-03-29] MEDS: CEphaleXIN 500 MG CAPSULE PO SCH ×2 (08:29→21:11)
[2020-03-29] MEDS: SODIUM CHLORIDE 1,000 MG TABLET PO SCH (08:29)
[2020-03-29] MEDS: LISINOPRIL 5 MG TABLET PO SCH (08:37)
[2020-03-29] MEDS: IV NS 1000 ML 1,000 ML IV PRN (11:29)
[2020-03-29] MEDS ORDERED: MAGNESIUM CITRATE 296 ML BOTTLE PO ONE (12:00)
[2020-03-29] MEDS ORDERED: BISACODYL 5 MG TABLET.DR PO ONE (12:00)
[2020-03-29 15:51] VITALS: BP 129/70
--- NOTE | 2020-03-29 17:50 | NUR ---
Patient did not have a bowel movement with the administration of Golytely overnight. Made Dr Stewart aware and he gave orders for doculax, Mag citrate and tap water enema. Tap water enema was done 3 times, 1200, 1500 and 1730. Will continue to monitor.
[2020-03-29] MEDS ORDERED: FENTANYL CITRATE 100 MCG/2 ML AMPUL ONE (19:38)
--- NOTE | 2020-03-29 19:41 | NUR ---
Patient was picked up by surgery for colonoscopy. She was laying in soiled sheets so called and made Dr Stewart aware and he says as long as it was liquid he would still want to proceed with the procedure. Report given to nurses Alta from surgery. All medications given as ordered. Will endorse to oncoming nurse.
--- NOTE | 2020-03-29 21:05 | NUR ---
Patient back from surgery via gurney in no acute distress.Per report from Rn/Santos sigmoidoscopy was only performed.Started on clear liquids diet as ordered.Patient noted with BM.Iv site on Rt hand 20 g patent and intact with NS 0.9% running well at 75 cc/hr.Call light and belongings within reach.Will continue to monitor.
[2020-03-29 21:08] VITALS: BP 140/65
[2020-03-29] MEDS: MORPHINE SULFATE 2 MG/1 ML DISP.SYRIN IV PRN (22:54)
[2020-03-30 04:02] VITALS: BP 145/61
[2020-03-30] MEDS: MORPHINE SULFATE 2 MG/1 ML DISP.SYRIN IV PRN (04:55)
[2020-03-30] MEDS: IV NS 1000 ML 1,000 ML IV PRN (06:15)
--- NOTE | 2020-03-30 07:07 | NUR ---
Patient slept intermittently .c/o abd'l pain .Medicated with PRN medication with good result.Uses commode.All needs anticipated and met accordingly.Call light with in reach.
--- NOTE | 2020-03-30 07:30 | NUR ---
Received patient resting in bed awake and oriented. Patient reports pain in the abdomen after eating jello cup at 0300 but refuses any pain medication at this time. She is mainly [place] Islander speaking. She has IV on left hand running 20 gauge NS at 75mls/hour. Patient has questions about the procedure she had last night ans wants to talk to the doctor. Patient is now on clear liquid diet and seems to be tolerating it well. Safety precautions are in place with call lights and belongings within reach. Will continue to monitor.
[2020-03-30] MEDS: CEphaleXIN 500 MG CAPSULE PO SCH ×2 (08:46→20:34)
[2020-03-30] MEDS: PANTOPRAZOLE SODIUM 40 MG TABLET.DR PO SCH (08:46)
[2020-03-30] MEDS: SODIUM CHLORIDE 1,000 MG TABLET PO SCH (08:46)
[2020-03-30] MEDS: LISINOPRIL 5 MG TABLET PO SCH (08:49)
[2020-03-30 11:37] VITALS: BP 157/71
[2020-03-30] MEDS ORDERED: HYDROCORTISONE 0.5% CREAM 28.35 GM TUBE TOP PRN (11:45)
[2020-03-30 15:26] VITALS: BP 167/83
--- NOTE | 2020-03-30 18:51 | NUR ---
Patient is in talking with ANTHONY kaur now. Addendum: 03/30/20 at 1926 by NIMA ARCEO RN Jennifer from surgery was in the room speaking with the patient.
--- NOTE | 2020-03-30 18:52 | NUR ---
Patient is resting in bed with no sign of distress noted at this time. Patient is a little emotional because the Dr from surgery Jennifer just explain to her that the mass in the sigmoid colon is not indicated for surgery at this time. All medications given as ordered. Safety precaution in place with call light and belongings within reach. Will endorse to the oncoming nurse.
--- NOTE | 2020-03-30 20:00 | NUR ---
Patient awake and alert in bed. Does not appear to be in any distress. No s/s of respiratory distress. Patient does not report any pain at this time. Safety precautions initiated per protocol. Call light is within reach.
[2020-03-30 20:02] VITALS: BP 166/79
[2020-03-30] MEDS: CLONIDINE HCL 0.1 MG TABLET PO PRN (20:34)
[2020-03-30 22:00] VITALS: BP 148/81
--- NOTE | 2020-03-30 22:00 | NUR ---
PRN catapres given for B/P 166/79 at 2033. B/P rechecked at 2199 and lowered to 148/81. Medication was affective and patient did not to appear to be in any distress.
[2020-03-31] MEDS: IV NS 1000 ML 1,000 ML IV PRN (00:22)
[2020-03-31 02:06] LABS: CARBOHYDRATE ANTIGEN, 19-9 161 U/mL (0-35)
[2020-03-31 04:02] VITALS: BP 142/70
--- NOTE | 2020-03-31 06:43 | NUR ---
Patient sleeping at this time and appears to be calm and in no acute distress. Woke up several times throughout the night to urinate in the bedside commode with assistance. No reportable pain throughout the night. Safety precautions have been initiated per protocol and call light is within reach.
[2020-03-31] MEDS: LISINOPRIL 5 MG TABLET PO SCH (09:26)
[2020-03-31] MEDS: PANTOPRAZOLE SODIUM 40 MG TABLET.DR PO SCH (09:26)
[2020-03-31] MEDS: SODIUM CHLORIDE 1,000 MG TABLET PO SCH (09:26)
--- NOTE | 2020-03-31 09:42 | NUR ---
Received patient in bed awake, Pt. is AAO x 4, citizen of [place] speaking mostly, able to express needs. No acute disteress noted. Vital signs stable at this time. IV site on Left FA intact and patent, IV NS running at 75cc/hr. Due morning meds administered. Patient stated feeling much better after BM. Discussed patient's concerns, also spoke with daughter Corni regarding concerns and mother's condition. Informed daughter will f/up with MD regarding family's concerns. Will continue with care.
--- NOTE | 2020-03-31 09:55 | NUR ---
Report given to TOMASA Amor incoming nurse.
--- NOTE | 2020-03-31 10:00 | NUR ---
Pt in bed, awake. Denies any acute distress or pain at this time. V/S stable on room air. Afebrile. LFA 22 intact with NS running at 75cc. Safety measures in place. Call light within reach. Will continue to monitor.
[2020-03-31 11:56] VITALS: BP 140/69
[2020-03-31] MEDS ORDERED: MAGN400O6 PO (13:08)
[2020-03-31] MEDS ORDERED: CLON0.1T14 PO (13:08)
[2020-03-31] MEDS ORDERED: HYDR-3972 PO (13:08)
[2020-03-31] MEDS ORDERED: ACET325T53 PO (13:08)
[2020-03-31] MEDS ORDERED: HYDROCORTISONE 0.5% TOP (13:08)
--- NOTE | 2020-03-31 15:57 | NUR ---
Pt discharged. Picked up by Ambulance, going to [facility]. V/S stable. All personal belongings and discharge papers with the patient.
[2020-03-31] MEDS ORDERED: IV NORMAL SALINE 1000 ML BAG IV ONE (15:59)
[2020-03-31] MEDS ORDERED: PROPOFOL 200 MG/20 ML BOTTLE IV ONE (15:59)
== END 2020-03-31 16:00 | DRG 240 ==
LOC: ER 23:41 → MEDSURG3 03-25 04:22
PROVIDERS: ADMIT Internal Medicine; ATTEND Nurse Practitioner Acute Care
PROC: 0DBN8ZX Excision of Sigmoid Colon, Via Natural or Artificial Opening Endoscopic, Diagnostic (ICD-10-PCS; principal; 2020-03-29)
DX: C18.7 Malignant neoplasm of sigmoid colon (principal); C78.7 Secondary malignant neoplasm of liver and intrahepatic bile duct; E43 Unspecified severe protein-calorie malnutrition; C78.02 Secondary malignant neoplasm of left lung; C78.01 Secondary malignant neoplasm of right lung; N39.0 Urinary tract infection, site not specified; E87.1 Hypo-osmolality and hyponatremia; Z68.1 Body mass index [BMI] 19.9 or less, adult; B96.89 Other specified bacterial agents as the cause of diseases classified elsewhere; D50.9 Iron deficiency anemia, unspecified; E11.9 Type 2 diabetes mellitus without complications; F32.9 Major depressive disorder, single episode, unspecified; F41.9 Anxiety disorder, unspecified; G47.00 Insomnia, unspecified; I10 Essential (primary) hypertension; I25.10 Atherosclerotic heart disease of native coronary artery without angina pectoris; K57.90 Diverticulosis of intestine, part unspecified, without perforation or abscess without bleeding; Z79.899 Other long term (current) drug therapy; Z86.19 Personal history of other infectious and parasitic diseases; Z89.511 Acquired absence of right leg below knee
CPT/HCPCS: 36415; 82105; 82378; 82784; 83550; 83605; 83690; 83735; 84100; 84155; 84165; 84443; 85025; 85730; 86301; 86334; 87077; 87086; 93005; A4217; A4663; G0378; J0696; J1815; J2270; J2405; J3010; J3490; J7030; J7040; J7050; J7060; Q9967